=== PATIENT | female | born 1990 | race Caucasian/White ===

== ENCOUNTER 2018-07-26 15:43 | Emergency (ER) | payer OTHER ==
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
[2018-07-26] MEDS ORDERED: Zofran 4 MG/2 ML VIAL ONE (17:09)
[2018-07-26] MEDS ORDERED: Sodium Chloride 0.9% 1000 ML 1,000 ML ONE (17:09)
[2018-07-26] MEDS ORDERED: Hydromorphone 1 mg/ml Ampule ONE ×2 (17:09→19:54)
[2018-07-26 17:14] LABS: BASOPHIL % 0.2 % (0.0-0.4); Basophil (Absolute #) 0.02 (0-0.4); Eosinophil % 0.8 % (0.00-5.0); Eosinophil (Absolute #) 0.08 (0-0.5); Granulocyte Absolute (ANC) 6.92 (1.4-6.9); Granulocytes % 69.9 % (36.0-66.0); Hematocrit 40.5 % (35-47); Hemoglobin 12.7 gm/dl (12.0-16.0); Lymphocyte (Absolute #) 2.39 (1.0-4.6); Lymphocytes % 24.1 % (24.0-44.0); Mean Cell Volume 86.9 fl (78-100); Mean Corpuscular Hemoglobin 27.3 pg (26-32); Mean Corpuscular Hgb Concent. 31.4 g/dl (32-36); Platelet Count 275 K/mm3 (150-450); Red Blood Count 4.66 M/mm3 (4.1-5.4); Red Cell Distribution Width 15.2 % (11.5-14.0); White Blood Count 9.9 K/mm3 (4.0-10.5)
[2018-07-26] MEDS: Sodium Chloride 0.9% 1000 ML 1,000 ML IV STA (17:14)
[2018-07-26] MEDS: Zofran 4 MG/2 ML VIAL IV ONE (17:14)
[2018-07-26] MEDS: Hydromorphone 1 mg/ml Ampule IV ONE ×2 (17:14→19:57)
[2018-07-26 17:32] LABS: ALBUMIN 4.2 g/dL (3.5-5.0); ALKALINE PHOSPHATASE 151 U/L (38-126); ANION GAP 13.8 MEQ/L (5-15); BLOOD UREA NITROGEN 9 mg/dL (7-17); CHLORIDE 103 mmol/L (98-107); Calcium 9.5 mg/dL (8.4-10.2); Carbon Dioxide 29 mmol/L (22-30); Creatinine 1 0.59 mg/dL (0.52-1.04); Glucose 93 mg/dL (74-106); Potassium 4.3 mmol/L (3.5-5.1); SGOT/AST 16 U/L (14-36); SGPT/ALT 24 U/L (0-35); SODIUM 141 mmol/L (137-145); Total Protein 7.8 g/dL (6.3-8.2)
[2018-07-26 20:08] VITALS: BP 130/75; PULSE 95; O2SAT 98
--- NOTE | 2018-07-27 08:38 | XRAY ---
Indication: Pain and edema. Comparison: None 2 views of the left femur demonstrates intact intramedullary neisha with proximal/distal screws fixating a shaft fracture with bone graft in situ. Apposition/alignment appears near-anatomic. Old proximal femur neck fracture with 4 intact orthopedic screws. No other bony, articular, or soft tissue abnormalities. Comment: Comparison studies would be of benefit if available.
--- NOTE | 2018-07-27 08:41 | XRAY ---
Indication: Pain and edema. Comparison: None 2 views of the left lower leg demonstrates intact intramedullary neisha with proximal/distal screws fixating a shaft fracture with bone graft in situ, multiple surgical clips, and soft tissue swelling/edema. Apposition/alignment appears near-anatomic. Adjacent old fibula shaft fracture. No other bony, articular, or soft tissue abnormalities. Comment: Comparison studies would be of benefit if available.
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
== END 2018-07-26 20:40 | disposition short-term general hospital (02) ==
LOC: ED 15:43
DX: I77.1 Stricture of artery (principal); M79.605 Pain in left leg; V89.2XXS Person injured in unspecified motor-vehicle accident, traffic, sequela
CPT/HCPCS: 36000; 36415; 73552; 73590; 80053; 85025; 86140; 93926; 96360; 96374; 96375; 96376; 99285; J1170; J2405

== ENCOUNTER 2019-04-17 23:46 | Observation (INO) | payer OTHER ==
[2019-04-18 00:23] LABS: Appearance CLEAR (CLEAR); Bilirubin NEGATIVE (NEGATIVE); Blood SMALL Ery/ul (0-5); Epithelial Cells RARE /HPF (FEW); Glucose NEGATIVE (NEGATIVE); Ketones NEGATIVE (NEGATIVE); Leukocyte Esterase NEGATIVE (NEGATIVE); Nitrite NEGATIVE (NEGATIVE); Protein,Urine Dip NEGATIVE (Negative); RBC 0-2 /HPF (0-2); Specific Gravity 1.008 (1.005-1.025); Urobilinogen NEGATIVE mg/dL (0-1)
[2019-04-18 00:35] LABS: Amphetamine,Urine NEGATIVE (NEGATIVE); Barbiturate,Urine NEGATIVE (NEGATIVE); Benzodiazepine,Urine NEGATIVE (NEGATIVE); Cocaine,Urine NEGATIVE (NEGATIVE); Methadone,Urine NEGATIVE (NEGATIVE); Opiate,Urine NEGATIVE (NEGATIVE); PCP,Urine NEGATIVE (NEGATIVE); THC,Urine NEGATIVE (NEGATIVE)
[2019-04-18 01:35] VITALS: BP 127/65; PULSE 78
== END 2019-04-18 01:10 | disposition home or self-care (01) ==
LOC: UNDOADMOB 23:46 → OB 23:46 → UNDODISOB 04-18 01:10
PROVIDERS: ADMIT Family Medicine; ATTEND Family Medicine
DX: Z34.03 Encounter for supervision of normal first pregnancy, third trimester (principal)
CPT/HCPCS: 80307; 81001; G0378

== ENCOUNTER 2019-05-17 23:10 | Inpatient (IN) | payer OTHER ==
[2019-05-17] MEDS ORDERED: BRETHINE 1 MG/ML SQ PRN (23:42)
[2019-05-17] MEDS ORDERED: XYLOCAINE 1% HCL 20 ML MDV IJ PRN (23:45)
[2019-05-17] MEDS ORDERED: PITOCIN 30 UNITS/ LR 500 ML 500 ML IV SCH (23:45)
[2019-05-17] MEDS ORDERED: Zofran 4 MG/2 ML VIAL IV PRN (23:45)
[2019-05-17] MEDS ORDERED: TYLENOL EXTRA STRENGTH 500 MG PO PRN (23:45)
[2019-05-18 00:15] LABS: Amphetamine,Urine NEGATIVE (NEGATIVE); Barbiturate,Urine NEGATIVE (NEGATIVE); Benzodiazepine,Urine NEGATIVE (NEGATIVE); Cocaine,Urine NEGATIVE (NEGATIVE); Methadone,Urine NEGATIVE (NEGATIVE); Opiate,Urine NEGATIVE (NEGATIVE); PCP,Urine NEGATIVE (NEGATIVE); THC,Urine NEGATIVE (NEGATIVE)
[2019-05-18 00:22] LABS: Absolute Neutrophil Ct (ANC) 6.36 (1.4-6.9); BASOPHIL % 0.2 % (0.0-0.4); Basophil (Absolute #) 0.02 (0-0.4); Eosinophil % 1.2 % (0.00-5.0); Eosinophil (Absolute #) 0.11 (0-0.5); Hematocrit 35.9 % (35-47); Hemoglobin 12.2 gm/dl (12.0-16.0); Lymphocyte (Absolute #) 2.18 (1.0-4.6); Lymphocytes % 23.9 % (24.0-44.0); Monocyte (Absolute #) 0.46 (0.0-1.3); Neutrophil % 69.7 % (36.0-66.0); Platelet Count 231 K/mm3 (150-450); Red Blood Count 3.99 M/mm3 (4.1-5.4); Red Cell Distribution Width 12.6 % (11.5-14.0); White Blood Count 9.1 K/mm3 (4.0-10.5)
[2019-05-18 00:37] LABS: Mean Corpuscular Hemoglobin 30.5 pg (26-32)
[2019-05-18] MEDS ORDERED: Cervidil 10 MG VAG SCH (01:00)
[2019-05-18] MEDS ORDERED: PITOCIN 30 UNITS/ LR 500 ML 500 ML IV SCH (08:00)
[2019-05-18] MEDS: Lactated Ringers 1,000 ML IV SCH ×2 (13:49→20:41)
[2019-05-18] MEDS ORDERED: Nubain 10 MG/ML IV ONE ×2 (17:48→21:18)
[2019-05-18] MEDS ORDERED: Lactated Ringers 1,000 ML IV ONE (23:16)
[2019-05-18] MEDS ORDERED: Ephedrine Sulfate 50 MG/ML IV PRN (23:16)
[2019-05-18] MEDS ORDERED: XYLOCAINE 2%/Epi 1:200000 20ML VIAL MPF ONE (23:20)
[2019-05-18] MEDS: OB EPIDURAL NAROPIN/SUFENTANIL IN NACL EPIDURAL PRN (23:28)
[2019-05-19] MEDS: Lactated Ringers 1,000 ML IV SCH ×2 (02:59→09:46)
[2019-05-19] MEDS: OB EPIDURAL NAROPIN/SUFENTANIL IN NACL EPIDURAL PRN (08:41)
[2019-05-19 14:32] LABS: VBG BASE EXCESS -5.4 (-2.0-2.0); VBG HEMOGLOBIN 15.9; VBG O2 SATURATION 44.7 (95-100); VBG POTASSIUM 4.9 (3.5-5.1); VBG pH 7.23 (7.32-7.42)
[2019-05-19] MEDS ORDERED: NORCO 5/325 MG PO PRN (16:09)
[2019-05-19] MEDS ORDERED: MOTRIN 400 MG PO PRN (16:09)
[2019-05-19] MEDS ORDERED: LANSINOH 40 GM TOP PRN (16:09)
[2019-05-19] MEDS ORDERED: Dermoplast Spray TP PRN (16:09)
[2019-05-19] MEDS ORDERED: TUCKS TP PRN (16:09)
[2019-05-19] MEDS: CLINDAMYCIN-D5W 600 MG/50 ML*** 600 MG/50 ML BAG IV SCH ×2 (16:20→23:33)
[2019-05-19] MEDS: PITOCIN 30 UNITS/ LR 500 ML 500 ML IV SCH (17:46)
[2019-05-19 20:28] LABS: ABO TYPING O; Antibody Screen NEGATIVE (NEGATIVE); RH TYPING POSITIVE
[2019-05-19] MEDS: Colace 100 MG PO SCH (22:27)
[2019-05-20 05:47] LABS: Hematocrit 25.3 % (35-47); Hemoglobin 8.2 gm/dl (12.0-16.0); Mean Cell Volume 92.3 fl (78-100); Mean Corpuscular Hemoglobin 29.9 pg (26-32); Mean Corpuscular Hgb Concent. 32.4 g/dl (32-36); Mean Platelet Volume 10.1 fl (6-9.5); Platelet Count 196 K/mm3 (150-450); Red Blood Count 2.74 M/mm3 (4.1-5.4); Red Cell Distribution Width 12.6 % (11.5-14.0); White Blood Count 16.7 K/mm3 (4.0-10.5)
[2019-05-20 06:30] LABS: Lymphocytes 8 % (24-44); Monocyte 2 % (0.0-12.0); Neutrophils 90 % (36.0-66.0); Platelet Estimate NORMAL (NORMAL); Total Cells Counted 100
[2019-05-20] MEDS: CLINDAMYCIN-D5W 600 MG/50 ML*** 600 MG/50 ML BAG IV SCH ×2 (06:30→11:13)
[2019-05-20] MEDS: Colace 100 MG PO SCH ×2 (10:03→20:30)
[2019-05-20] MEDS: FERREX 150 PO SCH (10:03)
--- NOTE | 2019-05-20 10:37 | PCM.NOTE ---
Date and Time: 05/20/19 1033 Subjective Assessment: PPD 1 PT RESTING IN BED AND DOING WELL. VSS ABD; SOFT UTERUS; FIRM LOCHIA; MILD HGB; 8.2 TODAY A/P SP WITH MANUAL REMOVAL OF PLACENTA, ANEMIA WILL DISCONTINUE CLINDAMYCIN TODAY WILL START FESO4 325 TID TODAY REPEAT CBC TOMORROW AM ANTICIPATE DISCHARGE HOME TOMORROW OBJECTIVE DATA Vital Signs: Vital Signs - 24 hr Temp Pulse Resp BP BP Pulse Ox 05/20/19 10:00 98.3 F 90 18 132/63 05/20/19 09:57 98.3 F 90 18 132/63 05/19/19 20:00 98.2 F 105 H 18 136/76 97 05/19/19 17:30 81 20 135/75 05/19/19 16:30 87 20 106/72 05/19/19 15:30 86 20 142/67 05/19/19 15:15 86 20 135/76 05/19/19 15:00 93 H 20 155/67 05/19/19 14:15 20 05/19/19 14:00 80 20 05/19/19 13:45 20 05/19/19 13:30 20 05/19/19 13:15 64 20 130/79 05/19/19 13:00 20 05/19/19 12:45 88 20 141/92 05/19/19 12:30 78 20 134/83 05/19/19 12:15 75 20 130/67 05/19/19 12:00 77 20 131/59 05/19/19 11:45 68 20 108/80 05/19/19 11:30 73 20 108/55 05/19/19 11:15 73 20 100/58 05/19/19 11:00 57 L 20 78/45 05/19/19 10:45 61 20 106/57 Pain Assessment - Last Documented Pain Intensity [Lower Medial] 7 Pain Intensity 4 Pain Scale Used FLACC Intake and Output: Intake & Output 05/17/19 05/18/19 05/19/19 05/20/19 11:59 11:59 11:59 11:59 Intake Total 100 4689 1200 Output Total 375 600 Balance 100 4314 600 Weight 82 kg Lab Results: Lab Results-Last 24 Hours 05/19/19 05/19/19 05/20/19 Range/Units 14:31 19:40 05:43 WBC 16.7 H (4.0-10.5) K/mm3 RBC 2.74 L (4.1-5.4) M/mm3 Hgb 8.2 L (12.0-16.0) gm/dl Hct 25.3 L (35-47) % MCV 92.3 (78-100) fl MCH 29.9 (26-32) pg MCHC 32.4 (32-36) g/dl RDW 12.6 (11.5-14.0) % Plt Count 196 (150-450) K/mm3 MPV 10.1 H (6-9.5) fl Segmented Neutrophils 90 H (36.0-66.0) % Lymphocytes (Manual) 8 L (24-44) % Monocytes (Manual) 2 (0.0-12.0) % Platelet Estimate NORMAL (NORMAL) RBC Morphology NORMAL pO2/FiO2 Ratio 21.0 % VBG pH 7.23 L* (7.32-7.42) VBG pCO2 at Pat Temp 55 (42-55) mm/Hg VBG pO2 at Pat Temp 20 L (25-40) mm/Hg VBG HCO3 23.0 (22-28) meq/L VBG O2 Sat (Chitra) 44.7 L (95-100) VBG Base Excess -5.4 L (-2.0-2.0) VBG Hemoglobin 15.9 VBG Carboxyhemoglobin 2.0 (0.0-6.9) % T HGB POC Potassium 4.9 (3.5-5.1) ABO Group O Rh Factor POSITIVE Antibody Screen NEGATIVE (NEGATIVE)
[2019-05-20] MEDS: PITOCIN 30 UNITS/ LR 500 ML 500 ML IV SCH (10:53)
[2019-05-20] MEDS: Lactated Ringers 1,000 ML IV SCH ×2 (10:53→16:22)
[2019-05-20] MEDS: FEOSOL 325 MG PO SCH ×3 (11:13→20:30)
[2019-05-21 06:16] LABS: Hematocrit 21.5 % (35-47); Mean Cell Volume 93.5 fl (78-100); Mean Corpuscular Hemoglobin 30.4 pg (26-32); Mean Corpuscular Hgb Concent. 32.6 g/dl (32-36); Mean Platelet Volume 10.4 fl (6-9.5); Platelet Count 190 K/mm3 (150-450); Red Cell Distribution Width 12.7 % (11.5-14.0); White Blood Count 11.4 K/mm3 (4.0-10.5)
[2019-05-21] MEDS: Lactated Ringers 1,000 ML IV SCH (07:57)
[2019-05-21] MEDS: FERREX 150 PO SCH (10:26)
[2019-05-21] MEDS: Colace 100 MG PO SCH (10:28)
[2019-05-21] MEDS: FEOSOL 325 MG PO SCH ×2 (10:28→14:55)
[2019-05-21 11:19] LABS: Hematocrit 24.1 % (35-47); Hemoglobin 7.7 gm/dl (12.0-16.0)
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
[2019-05-21] MEDS: PITOCIN 30 UNITS/ LR 500 ML 500 ML IV SCH (12:43)
[2019-05-21 14:40] VITALS: BP 116/63; PULSE 82; O2SAT 97
[2019-05-21 15:06] LABS: CHLAMYDIA URINE NEGATIVE (NEGATIVE); GC URINE NEGATIVE (NEGATIVE)
== END 2019-05-21 16:20 | disposition home or self-care (01) | DRG 807 ==
LOC: OB 23:10 → OBSVTOIN 23:11 → INTOOBSV 23:11 → OB 23:11 → OBSVTOIN 05-18 23:10
PROVIDERS: ADMIT Family Medicine; ATTEND Family Medicine
PROC: 10E0XZZ Delivery of Products of Conception, External Approach (ICD-10-PCS; principal; 2019-05-19)
DX: O71.4 Obstetric high vaginal laceration alone (principal); Z37.0 Single live birth; Z3A.39 39 weeks gestation of pregnancy; D64.9 Anemia, unspecified
CPT/HCPCS: 36415; 80307; 82805; 85014; 85018; 85025; 85027; 86850; 86900; 86901; 87086; 87340; 87491; 87591; 94799; G0378; J2300; J2590; J2795; L0625; A9270-GY

== ENCOUNTER 2019-07-11 05:48 | Day surgery (SDC) | payer OTHER ==
[2019-07-11] MEDS ORDERED: TRANEXAMIC ACID 1000 MG/10 ML IV ONE (05:49)
[2019-07-11 06:25] VITALS: O2SAT 99
[2019-07-11] MEDS ORDERED: Lactated Ringers 1,000 ML IV SCH (06:30)
[2019-07-11] MEDS ORDERED: DIPRIVAN 200 MG/20 ML IV ONE (07:58)
[2019-07-11] MEDS ORDERED: SUBLIMAZE 100 MCG/2 ML ONE (07:58)
[2019-07-11] MEDS ORDERED: Zofran 4 MG/2 ML VIAL ONE (08:34)
[2019-07-11] MEDS ORDERED: TORAdol 30 mg Injection ONE (08:34)
[2019-07-11] MEDS ORDERED: Decadron 4 MG INJ ONE (08:34)
[2019-07-11] MEDS ORDERED: Sodium Chloride 0.9% 250 ML 250 ML IV ONE (08:36)
[2019-07-11 09:45] VITALS: BP 145/84; PULSE 79
--- NOTE | 2019-07-12 07:52 | OP ---
SURGERY DATE/TIME: 07/11/201924 PREOPERATIVE DIAGNOSES: 1) Retained products of conception. 2) Retained placental tissue. 3) bleeding. POSTOPERATIVE DIAGNOSES: 1) Retained products of conception. 2) Retained placental tissue. 3) bleeding. PROCEDURE: D&C with suction. SURGEON: Holger Dutta D.O. SEROLOGIST: Ancelmo Lockett surgical dressing maker. ANESTHESIA: General. ESTIMATED BLOOD LOSS: Minimal. COMPLICATIONS: None. INDICATIONS: The risks, benefits, indications and alternatives of the procedure were reviewed with the patient prior to procedure. The patient understood the risk of infection, bleeding, bowel injury, bladder injury, ureteral injury, uterine perforation associated with the surgery however desires to have this procedure as a possible means to alleviate her current medical condition. DESCRIPTION OF PROCEDURE AND FINDINGS: At this time the patient is taken to the operating room, given general sedation, placed in the dorsal lithotomy position. Prepped and draped in the usual sterile fashion. A weighted speculum is then placed in the patient's vagina and the anterior lip of the cervix is grasped with a single tooth tenaculum. Endocervical dilators were advanced through the endocervical canal as a means to dilate the cervix and the uterus was sounded to approximately 11 cm. From this point a #8 curved suction evacuator was then placed into the fundus of the uterus. The machine was turned on and retrieval of a significant amount of placental tissue was removed including three large approximately 3 x 2 cm pieces of placental tissue. After removal of the placental tissue the evacurette was then removed from the patient's uterine cavity and the curette was subsequently placed into the fundus of the uterus where curettage was performed in all quadrants of the uterus retrieving the remaining amount of placental endometrial tissue. Again, there was a significant amount of placental tissue that remained. However at this point after complete curettage the patient's uterine cavity appeared to be within normal limits with no gross abnormalities while curetting. From this point all instruments were then removed from the patient's vaginal region. The patient was then taken out of the dorsal lithotomy position, was taken out of anesthesia and was then taken to the recovery room in stable condition. All instruments and laps were accounted for x2.
== END 2019-07-11 09:55 | disposition home or self-care (01) ==
LOC: SDC 05:48
PROVIDERS: ATTEND Obstetrics & Gynecology
DX: O72.2 Delayed and secondary postpartum hemorrhage (principal)
CPT/HCPCS: 88305; 88307; J1100; J1885; J2405; J2704; J3010

== ENCOUNTER 2020-10-14 12:41 | Observation (INO) | payer OTHER ==
[2020-10-14 13:14] VITALS: BP 124/74; PULSE 76
== END 2020-10-14 13:30 | disposition home or self-care (01) ==
LOC: OB 12:41
PROVIDERS: ADMIT Family Medicine; ATTEND Family Medicine
DX: Z34.83 Encounter for supervision of other normal pregnancy, third trimester (principal); Z3A.33 33 weeks gestation of pregnancy
CPT/HCPCS: 59025; G0378

== ENCOUNTER 2020-10-27 17:28 | Observation (INO) | payer OTHER ==
[2020-10-27 18:17] LABS: Amphetamine,Urine NEGATIVE (NEGATIVE); Barbiturate,Urine NEGATIVE (NEGATIVE); Benzodiazepine,Urine NEGATIVE (NEGATIVE); Cocaine,Urine NEGATIVE (NEGATIVE); Methadone,Urine NEGATIVE (NEGATIVE); Opiate,Urine NEGATIVE (NEGATIVE); PCP,Urine NEGATIVE (NEGATIVE); THC,Urine NEGATIVE (NEGATIVE)
[2020-10-27 19:00] LABS: Appearance CLOUDY (CLEAR); Bacteria MODERATE /HPF (NEGATIVE); Bilirubin NEGATIVE (NEGATIVE); Blood NEGATIVE Ery/ul (0-5); Calcium Oxalate Crystals 26-50 /HPF (NEGATIVE); Epithelial Cells RARE /HPF (FEW); Glucose NEGATIVE (NEGATIVE); Ketones NEGATIVE (NEGATIVE); Leukocyte Esterase MODERATE (NEGATIVE); Mucus SLIGHT /HPF (NEGATIVE); Nitrite POSITIVE (NEGATIVE); Protein,Urine Dip 30 (Negative); Specific Gravity 1.025 (1.005-1.025); Urobilinogen 2 mg/dL (0-1); WBC >100 /HPF (0-5)
[2020-10-27] MEDS ORDERED: XYLOCAINE 1% HCL 20 ML MDV SUBDERMAL ONE (19:30)
[2020-10-27] MEDS ORDERED: Rocephin 1000 MG INJ IM ONE (19:30)
[2020-10-27] MEDS ORDERED: Rocephin 1000 MG INJ ONE (20:05)
[2020-10-27 21:33] VITALS: O2SAT 100
[2020-10-27 22:22] VITALS: BP 122/90; PULSE 71
== END 2020-10-27 22:00 | disposition home or self-care (01) ==
LOC: OB 17:28
PROVIDERS: ADMIT Family Medicine; ATTEND Family Medicine
DX: Z34.83 Encounter for supervision of other normal pregnancy, third trimester (principal); Z3A.34 34 weeks gestation of pregnancy
CPT/HCPCS: 80307; 81001; 84112; 87086; 96372; G0378; 87077; 87186; J0696

== ENCOUNTER 2020-11-28 17:52 | Inpatient (IN) | payer OTHER ==
[2020-11-28] MEDS ORDERED: Zofran 4 MG/2 ML VIAL IV PRN (18:04)
[2020-11-28] MEDS ORDERED: XYLOCAINE 1% HCL 20 ML MDV IJ PRN (18:04)
[2020-11-28 18:48] LABS: Absolute Neutrophil Ct (ANC) 7.96 (1.4-6.9); BASOPHIL % 0.1 % (0.0-0.4); Basophil (Absolute #) 0.01 (0-0.4); Eosinophil % 0.7 % (0.00-5.0); Eosinophil (Absolute #) 0.08 (0-0.5); Hematocrit 37.3 % (35-47); Hemoglobin 12.3 gm/dl (12.0-16.0); Lymphocyte (Absolute #) 2.23 (1.0-4.6); Lymphocytes % 20.6 % (24.0-44.0); Mean Corpuscular Hemoglobin 30.7 pg (26-32); Mean Platelet Volume 9.7 fl (7.5-11.0); Monocyte (Absolute #) 0.56 (0.0-1.3); Monocytes % 5.2 % (0.0-12.0); Neutrophil % 73.4 % (36.0-66.0); Platelet Count 263 K/mm3 (150-450); Red Blood Count 4.01 M/mm3 (4.1-5.4); Red Cell Distribution Width 13.5 % (11.5-14.0); White Blood Count 10.8 K/mm3 (4.0-10.5)
[2020-11-28 18:53] LABS: Appearance SLIGHTLY CLOUDY (CLEAR); Bacteria RARE /HPF (NEGATIVE); Bilirubin NEGATIVE (NEGATIVE); Blood MODERATE Ery/ul (0-5); Epithelial Cells RARE /HPF (FEW); Glucose NEGATIVE (NEGATIVE); Hyaline Casts 0-2 /LPF (0-2); Ketones NEGATIVE (NEGATIVE); Leukocyte Esterase NEGATIVE (NEGATIVE); Mucus SLIGHT /HPF (NEGATIVE); Nitrite NEGATIVE (NEGATIVE); Protein,Urine Dip 30 (Negative); Specific Gravity 1.025 (1.005-1.025); Urobilinogen 2 mg/dL (0-1)
[2020-11-28 19:06] LABS: Amphetamine,Urine NEGATIVE (NEGATIVE); Barbiturate,Urine NEGATIVE (NEGATIVE); Benzodiazepine,Urine NEGATIVE (NEGATIVE); Cocaine,Urine NEGATIVE (NEGATIVE); Methadone,Urine NEGATIVE (NEGATIVE); Opiate,Urine NEGATIVE (NEGATIVE); PCP,Urine NEGATIVE (NEGATIVE); THC,Urine NEGATIVE (NEGATIVE)
[2020-11-28] MEDS ORDERED: BRETHINE 1 MG/ML SQ PRN (19:32)
[2020-11-28] MEDS ORDERED: ROCEPHIN 1 Gm-D5w 50 ml Bag** 1 G/50 ML IVPB IV ONE (20:12)
[2020-11-28] MEDS: Lactated Ringers 1,000 ML IV ONE (20:13)
[2020-11-28] MEDS ORDERED: Cervidil 10 MG VAG SCH (22:00)
[2020-11-29] MEDS ORDERED: OB EPIDURAL NAROPIN/SUFENTANIL IN NACL EPIDURAL PRN (07:12)
[2020-11-29] MEDS ORDERED: Dermoplast Spray TP PRN (07:48)
[2020-11-29] MEDS ORDERED: PITOCIN 30 UNITS/ LR 500 ML 30 UNITS/500 ML IV.SOLN. IV SCH (08:00)
[2020-11-29] MEDS: PITOCIN 30 UNITS/ LR 500 ML 30 UNITS/500 ML IV.SOLN. IV SCH ×2 (10:53→22:37)
[2020-11-29] MEDS: Lactated Ringers 1,000 ML IV SCH ×3 (10:59→22:37)
[2020-11-29] MEDS: Lactated Ringers 1,000 ML IV ONE (14:40)
[2020-11-29] MEDS ORDERED: ROCEPHIN 1 Gm-D5w 50 ml Bag** 1 G/50 ML IVPB IV ONE (20:30)
[2020-11-30] MEDS: MOTRIN 400 MG PO PRN ×4 (01:42→22:33)
[2020-11-30] MEDS: TUCKS TP PRN ×2 (01:44→20:08)
[2020-11-30 06:53] LABS: Absolute Neutrophil Ct (ANC) 7.46 (1.4-6.9); BASOPHIL % 0.2 % (0.0-0.4); Basophil (Absolute #) 0.02 (0-0.4); Eosinophil % 1.1 % (0.00-5.0); Eosinophil (Absolute #) 0.12 (0-0.5); Hematocrit 34.9 % (35-47); Hemoglobin 11.1 gm/dl (12.0-16.0); Lymphocyte (Absolute #) 2.54 (1.0-4.6); Lymphocytes % 23.6 % (24.0-44.0); Mean Cell Volume 94.8 fl (78-100); Mean Corpuscular Hemoglobin 30.2 pg (26-32); Mean Corpuscular Hgb Concent. 31.8 g/dl (32-36); Mean Platelet Volume 9.7 fl (7.5-11.0); Monocytes % 5.6 % (0.0-12.0); Neutrophil % 69.5 % (36.0-66.0); Platelet Count 219 K/mm3 (150-450); Red Blood Count 3.68 M/mm3 (4.1-5.4); Red Cell Distribution Width 13.5 % (11.5-14.0); White Blood Count 10.7 K/mm3 (4.0-10.5)
[2020-11-30] MEDS: Colace 100 MG PO SCH ×2 (10:16→22:33)
[2020-11-30] MEDS: FERREX 150 PO SCH (10:16)
--- NOTE | 2020-11-30 10:27 | PCM.NOTE ---
Date and Time: 11/30/20 1025 Subjective Assessment: mild lochia, pain well controlled, tolerating po intake Objective Exam General Appearance: no apparent distress, alert Respiratory Exam: normal breath sounds, lungs clear, No respiratory distress Cardiovascular Exam: regular rate/rhythm, normal heart sounds Gastrointestinal/Abdomen Exam: soft, No tenderness, No mass Extremity Exam: normal inspection, normal range of motion OBJECTIVE DATA Vital Signs: Vital Signs - 24 hr Temp Pulse Resp BP BP Pulse Ox 11/30/20 08:00 98.5 F 67 18 119/63 98 11/30/20 04:00 97.7 F 69 20 140/66 97 11/30/20 00:00 98.0 F 61 20 160/54 97 11/29/20 22:00 97.8 F 64 20 108/75 97 11/29/20 21:30 98.0 F 75 20 115/73 97 11/29/20 21:00 97.9 F 61 20 104/54 97 11/29/20 20:45 97.9 F 68 18 134/63 97 11/29/20 20:30 98.9 F 58 L 20 109/56 98 11/29/20 20:15 98.6 F 75 20 129/66 98 11/29/20 20:00 98.7 F 65 20 103/54 98 11/29/20 19:15 75 20 108/58 11/29/20 19:00 71 20 118/71 11/29/20 18:30 63 18 137/60 11/29/20 18:15 63 18 129/60 11/29/20 18:00 64 18 134/61 11/29/20 17:45 75 18 113/58 11/29/20 17:30 61 18 108/44 11/29/20 17:15 72 18 99/56 11/29/20 17:00 63 18 102/55 102/55 11/29/20 16:45 63 18 101/57 11/29/20 16:30 71 18 87/39 96 11/29/20 16:15 77 18 118/53 98 11/29/20 16:00 74 18 122/61 98 11/29/20 15:45 68 20 122/61 98 11/29/20 15:30 67 20 135/67 98 11/29/20 15:15 61 20 117/56 11/29/20 15:00 97.4 F 63 20 110/57 11/29/20 14:45 20 11/29/20 14:30 65 20 117/68 11/29/20 14:15 65 20 110/55 11/29/20 14:00 65 20 110/60 11/29/20 13:45 64 20 104/56 11/29/20 13:30 63 20 114/62 11/29/20 13:15 64 20 113/70 11/29/20 13:00 71 20 114/67 114/67 11/29/20 12:45 71 18 104/60 11/29/20 12:30 67 18 104/57 11/29/20 12:15 73 20 141/70 11/29/20 11:57 63 20 99/57 11/29/20 11:45 64 20 109/59 11/29/20 11:30 64 20 108/54 11/29/20 11:15 62 20 115/59 11/29/20 11:00 20 Pain Assessment - Last Documented Pain Intensity [Anterior 0 Medial] Pain Intensity 0 Pain Scale Used 0-10 Pain Scale Intake and Output: Intake & Output 11/27/20 11/28/20 11/29/20 11/30/20 11:59 11:59 11:59 11:59 Intake Total 2425 Output Total 400 Balance 2024 Weight 99.79 kg Lab Results: Lab Results-Last 24 Hours 11/28/20 11/30/20 Range/Units 18:35 06:00 WBC 10.7 H (4.0-10.5) K/mm3 RBC 3.68 L (4.1-5.4) M/mm3 Hgb 11.1 L (12.0-16.0) gm/dl Hct 34.9 L (35-47) % MCV 94.8 (78-100) fl MCH 30.2 (26-32) pg MCHC 31.8 L (32-36) g/dl RDW 13.5 (11.5-14.0) % Plt Count 219 (150-450) K/mm3 MPV 9.7 (7.5-11.0) fl Gran % 69.5 H (36.0-66.0) % Eos # (Auto) 0.12 (0-0.5) Absolute Lymphs (auto) 2.54 (1.0-4.6) Absolute Monos (auto) 0.60 (0.0-1.3) Lymphocytes % 23.6 L (24.0-44.0) % Monocytes % 5.6 (0.0-12.0) % Eosinophils % 1.1 (0.00-5.0) % Basophils % 0.2 (0.0-0.4) % Absolute Granulocytes 7.46 H (1.4-6.9) Basophils # 0.02 (0-0.4) Hep Bs Antigen Negative (Negative) Assessment/Plan (1) Vaginal delivery Current Visit: No Status: Acute Assessment & Plan: routine post- care Code(s): O80 - ENCOUNTER FOR FULL-TERM UNCOMPLICATED DELIVERY
[2020-11-30] MEDS: TYLENOL EXTRA STRENGTH 500 MG PO PRN ×2 (14:24→20:07)
[2020-12-01] MEDS: TYLENOL EXTRA STRENGTH 500 MG PO PRN ×2 (01:32→08:22)
[2020-12-01] MEDS: MOTRIN 400 MG PO PRN ×2 (06:01→11:54)
--- NOTE | 2020-12-01 08:04 | PCM.DS ---
Discharge Summary Date of Admission: 11/29/20 18:16 Admitting Physician: SAVTIA ROBERT Primary Care Provider: SAVITA ROBERT Allergies Allergies No Known Drug Allergies Allergy (Verified 11/28/20 20:36) Hospital Summary - Hospital Course Hospital Course: patient had uncomplicated vaginal delivery by Dr Robert, her pain is well controlled with tylenol and she is ambulatory, tolerating po with mild lochia. - Vitals & Intake/Output Vital Signs: Vital Signs Temperature 97.5 F 12/01/20 02:00 Pulse Rate 62 12/01/20 02:00 Respiratory Rate 20 12/01/20 02:00 Blood Pressure 122/64 12/01/20 02:00 O2 Sat by Pulse Oximetry 98 12/01/20 02:00 Intake & Output: Intake & Output 11/28/20 11/29/20 11/30/20 12/01/20 11:59 11:59 11:59 11:59 Intake Total 2425 2250 Output Total 400 Balance 2024 225 Weight 99.79 kg - Lab Result Diagrams: 11/30/20 06:00 Lab Results-Last 24 Hrs: Lab Results-Last 24 Hours 11/28/20 Range/Units 18:35 Hep Bs Antigen Negative (Negative) Micro Results-Entire Visit: Microbiology 11/28/20 18:35 Urine Culture - Final Clean Catch Midstream NO GROWTH Discharge Exam General Appearance: no apparent distress, alert Respiratory Exam: normal breath sounds, lungs clear, No respiratory distress Cardiovascular Exam: regular rate/rhythm, normal heart sounds Gastrointestinal/Abdomen Exam: soft, No tenderness, No mass Skin Exam: normal color, warm, dry Final Diagnosis/Problem List - Final Discharge Diagnosis/Problem (1) Vaginal delivery Current Visit: No Status: Acute Code(s): O80 - ENCOUNTER FOR FULL-TERM UNCOMPLICATED DELIVERY - Discharge Disposition: Home, Self-Care Condition: Stable Prescriptions: Continue Vit#96/Ferrous Fum/FA [ Tablet] 1 tab PO DAILY Sertraline HCl 100 mg PO DAILY Discontinued Ferrous Sulfate 325 mg [Feosol 325 mg] 325 mg PO DAILY Follow up with: SAVITA ROBERT [Primary Care Provider] -
[2020-12-01] MEDS: Colace 100 MG PO SCH (08:22)
[2020-12-01] MEDS: FERREX 150 PO SCH (08:22)
[2020-12-01 10:51] VITALS: O2SAT 99
[2020-12-01 14:43] VITALS: BP 128/60; PULSE 77
== END 2020-12-01 12:15 | disposition home or self-care (01) | DRG 807 ==
LOC: OB 17:52 → OBSVTOIN 11-29 18:16
PROVIDERS: ADMIT Family Medicine; ATTEND Family Medicine
PROC: 10E0XZZ Delivery of Products of Conception, External Approach (ICD-10-PCS; principal; 2020-11-29)
DX: O66.0 Obstructed labor due to shoulder dystocia (principal); Z37.0 Single live birth; Z3A.39 39 weeks gestation of pregnancy
CPT/HCPCS: 36415; 80307; 81001; 85025; 87086; 87340; G0378; J0696; J2590; J2795; A9270-GY

== ENCOUNTER 2021-02-20 07:30 | Day surgery (SDC) | payer OTHER ==
--- NOTE | 2021-02-14 14:25 | HP ---
DATE OF SURGERY: 02/20/2021 HISTORY OF PRESENT ILLNESS: The patient is a 30 year-old female who presents with desire for tubal ligation. The patient had two pregnancies and two children. The last delivered 11/29/2020. The patient states that she has a lot of urinary tract infections. Denies urinary incontinence. The patient verbalizes consent for desired sterility and would like to proceed with the procedure. PAST MEDICAL HISTORY: Depression. ALLERGIES: NKDA. MEDICATIONS: Zoloft, vitamin. FAMILY HISTORY: Diabetes. SOCIAL HISTORY: None. REVIEW OF SYSTEMS: CONSTITUTIONAL: Denies fever or chills. CHEST: Denies shortness of breath. CVS: Denies chest pain. ABDOMEN: Denies abdominal pain. INTEGUMENTARY: Negative. PHYSICAL EXAMINATION: GENERAL: No acute distress. CHEST: Nonlabored. No shortness of breath. CVS: Regular rate and rhythm. ABDOMEN: Soft. EXTREMITIES: No edema. NEUROLOGIC: Alert. PSYCHIATRIC: Appropriate. IMPRESSION: Desired sterility. PLAN: Laparoscopic tubal ligation with Dr. Jones Pablo. As dictated by Greer Genao NP.
[~2021-02-20 07:30] MED LIST: Lactated Ringers 1,000 ML IV SCH; Sensorcaine 0.25% 10 ML ONE
[2021-02-20] MEDS ORDERED: MEFOXIN 2 GM PREMIX** 2 GM/50 ML ML IV SCH (08:00)
[2021-02-20] MEDS ORDERED: Lactated Ringers 1,000 ML IV ONE (08:06)
[2021-02-20] MEDS ORDERED: MEFOXIN 2 GM PREMIX** 2 GM/50 ML ML IV ONE (08:08)
[2021-02-20] MEDS ORDERED: Xylocaine-Mpf 2% 5 Ml Vial ONE (09:15)
[2021-02-20] MEDS ORDERED: Decadron 4 MG INJ ONE (09:15)
[2021-02-20] MEDS ORDERED: SUBLIMAZE 100 MCG/2 ML ONE ×3 (09:15→10:30)
[2021-02-20] MEDS ORDERED: Zofran 4 MG/2 ML VIAL ONE (09:15)
[2021-02-20] MEDS ORDERED: TORAdol 30 mg Injection ONE (09:15)
[2021-02-20] MEDS ORDERED: Zemuron 100 MG/10 ML ONE (09:15)
[2021-02-20] MEDS ORDERED: DIPRIVAN 200 MG/20 ML IV ONE (09:15)
[2021-02-20] MEDS ORDERED: BRIDION 200MG/2ML IV ONE (09:15)
[2021-02-20 11:06] VITALS: PULSE 74; O2SAT 98
[2021-02-20 11:18] VITALS: BP 118/72
--- NOTE | 2021-02-20 14:05 | OP ---
SURGERY DATE/TIME: 02/20/2021 0924 PREOPERATIVE DIAGNOSIS: Undesired fertility, multiparity. POSTOPERATIVE DIAGNOSIS: Undesired fertility, multiparity. PROCEDURE: Bilateral tubal ligation. SURGEON: Jones Pablo M.D. ANESTHESIA: General. COMPLICATIONS: None. CONDITION: Stable. INDICATION: The patient is desiring to have sterility. She has two children, two girls both healthy. The youngest is two months old. It was reconfirmed immediately prior to going back to the surgical suite. She desired to have infertility. DESCRIPTION OF PROCEDURE: General anesthetic. Routine prep and drape. Veress needle inserted. Opening pressure of 1, insufflating pressure 14. A second 5 port right lateral lower quadrant. Under direct visualization the uterus was two months . Both tubes were normal. Her left salpinx proximal middle third a 2 cm section was transmurally cauterized. It was inspected and looked excellent. Going to the right side similarly a 2 cm section was transmurrally fulgurated completely. It looked excellent. At this time the uterus was held up in the center. The round ligaments were seen on both the left and right. The coagulated areas on the left and then the meso-ovarian pedicle posteriorly on both the left and right. There had been a small amount of blood on entry which was probably retrograde menses or a left follicular cyst this was suctioned. CO2 exsufflated. Port sites were closed. The skin was closed with 4-0 Vicryl and Steri-Strips. Patient tolerated the procedure satisfactorily.
[2021-02-20 19:23] LABS: Appearance SLIGHTLY CLOUDY (CLEAR); Bilirubin NEGATIVE (NEGATIVE); Blood MODERATE Ery/ul (0-5); Epithelial Cells RARE /HPF (FEW); Glucose NEGATIVE (NEGATIVE); Ketones NEGATIVE (NEGATIVE); Leukocyte Esterase NEGATIVE (NEGATIVE); Mucus SLIGHT /HPF (NEGATIVE); Nitrite NEGATIVE (NEGATIVE); Protein,Urine Dip 30 (Negative); Specific Gravity 1.023 (1.005-1.025); Urobilinogen 2 mg/dL (0-1)
[2021-02-20 19:24] LABS: RBC >101 /HPF (0-2)
== END 2021-02-20 11:30 | disposition home or self-care (01) ==
LOC: SDC 07:30
PROVIDERS: ATTEND Surgery
DX: Z30.2 Encounter for sterilization (principal)
CPT/HCPCS: 81001; 84703; 87086; J0694; J1100; J1885; J2405; J2704; J3010

== ENCOUNTER 2022-05-26 13:14 | Emergency (ER) | payer OTHER ==
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
--- NOTE | 2022-05-26 14:46 | XRAY ---
Indication: Left leg pain and swelling. Two-dimensional sonogram and color Doppler imaging of the major venous vessels of the left leg performed. Comparison: None No thrombus seen in the examined deep venous vessels of the left leg including greater saphenous vein. Veins demonstrate normal compressibility. Venous waveforms are normal with and without augmentation. Impression: Left leg negative for DVT.
--- NOTE | 2022-05-26 14:48 | XRAY ---
Indication: Left leg pain and swelling. Two-dimensional sonogram and color Doppler imaging of the major arteries vessels of the left leg performed. Comparison: None Visualized common femoral, superficial femoral, popliteal, and dorsal pedal arteries are widely patent. Posterior tibial artery is tiny with tiny monophasic arterial waveforms. Remaining arterial waveforms are multiphasic throughout the left leg. Ankle brachial index not performed as patient could not tolerate exam. Impression: Tiny posterior tibial artery with attenuated monophasic arterial waveform. Remaining left leg arterial sonogram is widely patent.
[2022-05-26 14:57] VITALS: BP 103/81; PULSE 80; O2SAT 98
== END 2022-05-26 15:16 | disposition home or self-care (01) ==
LOC: ED 13:14
DX: M79.605 Pain in left leg (principal); M25.572 Pain in left ankle and joints of left foot; Z79.891 Long term (current) use of opiate analgesic; Z79.899 Other long term (current) drug therapy; Z28.310 Unvaccinated for COVID-19
CPT/HCPCS: 93926; 93971; 99282

== ENCOUNTER 2022-08-14 12:14 | Emergency (ER) | payer OTHER ==
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
[2022-08-14 13:45] LABS: Appearance Turbid (Clear); Bilirubin Negative (Negative); Blood Large (Negative); Epithelial Cells Few /HPF (None Seen); Glucose, Urine Negative (Negative); Hyaline Casts NONE SEEN /LPF (0-2); Ketones Negative (Negative); Leukocyte Esterase Large (Negative); Nitrite Positive (Negative); Protein,Urine Dip 100 (Negative); Specific Gravity 1.015 (1.005-1.030); Urobilinogen 0.2 mg/dL (0.2)
[2022-08-14 13:46] LABS: ADD URINE CULTURE? YES (NO); Bacteria Moderate /HPF (None Seen); WBC 21-50 /HPF (0-5)
[2022-08-14 14:17] VITALS: BP 112/74; PULSE 70
--- NOTE | 2022-08-14 14:39 | XRAY ---
Indication: Right flank pain and hematuria. History kidney stones. Multiple contiguous axial images obtained through the abdomen pelvis without contrast using renal stone protocol. Comparison: August 22, 2015 Lung bases clear. Heart not enlarged. New 1.7 cm right UPJ calculus with moderate hydronephrosis. No perinephric fluid. Additional new right lower renal and left mid renal punctate calculi. Noncontrasted stomach and bowel loops are nonobstructed with normal appendix. Again mild diffuse fecal stasis throughout, more than before. Minimal sigmoid diverticulosis without diverticulitis. Remaining liver, gallbladder, pancreas, spleen, adrenal glands, kidneys, ureters, bladder, uterus, and aorta are unremarkable for noncontrast exam. Osseous structures intact. Impression: 1. New 1.7 cm right UPJ with moderate hydronephrosis. Additional bilateral renal micro-calculi. 2. Worsening mild diffuse fecal stasis. New sigmoid diverticulosis.
[2022-08-14] MEDS ORDERED: Rocephin 1000 MG INJ IM ONE (14:44)
[2022-08-14] MEDS ORDERED: TORAdol 30 mg Injection IM ONE (14:45)
[2022-08-14 14:51] VITALS: O2SAT 97
[2022-08-14] MEDS ORDERED: XYLOCAINE 1% HCL 20 ML MDV ONE (14:58)
[2022-08-14] MEDS ORDERED: TORAdol 30 mg Injection ONE (14:58)
[2022-08-14] MEDS ORDERED: Rocephin 1000 MG INJ ONE (14:58)
== END 2022-08-14 15:24 | disposition home or self-care (01) ==
LOC: ED 12:14
DX: N13.2 Hydronephrosis with renal and ureteral calculous obstruction (principal); N39.0 Urinary tract infection, site not specified; R10.9 Unspecified abdominal pain; R11.2 Nausea with vomiting, unspecified; Z87.442 Personal history of urinary calculi; Z79.891 Long term (current) use of opiate analgesic; Z79.899 Other long term (current) drug therapy; Z28.310 Unvaccinated for COVID-19; Z72.0 Tobacco use
CPT/HCPCS: 74176; 81001; 81025; 87077; 87086; 87186; 96372; 99284; J0696; J1885

== ENCOUNTER 2022-09-10 13:14 | Emergency (ER) | payer OTHER ==
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
[2022-09-10] MEDS ORDERED: Sodium Chloride 0.9% 1000 ML 1,000 ML IV STA (13:33)
[2022-09-10] MEDS ORDERED: Zofran 4 MG/2 ML VIAL IV ONE (13:33)
[2022-09-10] MEDS ORDERED: Hydromorphone 1 mg/ml Injection IV ONE (13:33)
[2022-09-10] MEDS ORDERED: Zofran 4 MG/2 ML VIAL ONE (13:36)
[2022-09-10] MEDS ORDERED: Sodium Chloride 0.9% 1000 ML 1,000 ML ONE (13:37)
[2022-09-10] MEDS ORDERED: Hydromorphone 1 mg/ml Injection ONE (13:37)
[2022-09-10 14:15] LABS: BASOPHIL % 0.4 % (0.0-0.4); Basophil (Absolute #) 0.04 x10^3/uL (0-0.4); Eosinophil % 1.2 % (0.00-5.0); Eosinophil (Absolute #) 0.13 x10^3/uL (0-0.5); Hematocrit 39.4 % (35-47); Hemoglobin 12.6 g/dL (12.0-16.0); IMMATURE GRAN # 0.04 x10^3u/L (0.00-0.03); IMMATURE GRAN % 0.4 % (0.00-0.4); Lymphocytes % 15.2 % (24.0-44.0); Mean Cell Volume 91.8 fL (78-100); Mean Corpuscular Hemoglobin 29.4 pg (26-32); Mean Platelet Volume 9.4 fL (7.5-11.0); Monocyte (Absolute #) 0.59 x10^3/uL (0.0-1.3); Monocytes % 5.3 % (0.0-12.0); Neutrophil % 77.5 % (36.0-66.0); Platelet Count 253 x10^3/uL (150-450); Red Blood Count 4.29 x10^6/uL (4.1-5.4); Red Cell Distribution Width 12.8 % (11.5-14.0); White Blood Count 11.2 x10^3/uL (4.0-10.5)
[2022-09-10 14:29] LABS: ALBUMIN 3.9 g/dL (3.5-5.0); ALKALINE PHOSPHATASE 89 U/L (38-126); AMYLASE 48 U/L (30-110); ANION GAP 12.1 MEQ/L (5-15); BLOOD UREA NITROGEN 18 mg/dL (7-17); CHLORIDE 104 mmol/L (98-107); Calcium 8.6 mg/dL (8.4-10.2); Carbon Dioxide 24 mmol/L (22-30); Creatinine 1 0.76 mg/dL (0.52-1.04); EST GLOMERULAR FILTRATION RATE > 60.0 ML/MIN; Glucose 98 mg/dL (74-106); LIPASE 21 U/L (23-300); Potassium 4.4 mmol/L (3.5-5.1); SGOT/AST 16 U/L (14-36); SGPT/ALT 14 U/L (0-35); SODIUM 136 mmol/L (137-145); Total Protein 6.9 g/dL (6.3-8.2)
--- NOTE | 2022-09-10 14:44 | XRAY ---
Indication: Status post nephrostomy tube removal. Pain and drainage from nephrostomy site. Multiple contiguous images obtained through the abdomen and pelvis without contrast using renal stone protocol. Comparison: August 14, 2022. Lung bases now demonstrates minimal dependent atelectasis. Heart not enlarged. Right kidney demonstrates increasing renal edema with grossly stable moderate hydronephrosis. No perinephric fluid. Previous 1.7 cm right UPJ calculus absent. Stable right lower renal and left mid renal punctate calculi. Right ureter is now distended throughout up to 1.1 cm diameter without ureteral calculus. Posterior lateral right back demonstrates new nephrostomy track without focal fluid/air collection. Noncontrasted stomach and bowel loops appear nonobstructed again with normal appendix. There remains mild diffuse fecal debris throughout. New tiny cul-de-sac fluid presumed physiologic from rupture/leaking cyst. New 3 cm left ovary cyst. Remaining liver, gallbladder, pancreas, spleen, adrenal glands, kidneys, ureters, bladder, uterus, and aorta are unremarkable for noncontrast exam. Impression: 1. Status post right percutaneous nephrostomy removal without focal fluid/air collection. 2. Previous right UPJ calculus absent consistent with extraction. There remains right renal edema with hydronephrosis and new right hydroureter presumed from recent obstructive uropathy. Stable bilateral renal micro-calculi. 3. New 3 cm left ovary cyst with new physiologic cul-de-sac fluid. 4. Again incidental mild diffuse fecal stasis.
[2022-09-10] MEDS ORDERED: TORAdol 30 mg Injection IV ONE (15:11)
[2022-09-10] MEDS ORDERED: TORAdol 30 mg Injection ONE (15:18)
[2022-09-10 16:10] VITALS: BP 159/88; PULSE 48; O2SAT 100
[2022-09-10 16:36] LABS: Appearance Cloudy (Clear); Bilirubin Small (Negative); Blood Negative (Negative); Glucose, Urine Negative (Negative); Hyaline Casts NONE SEEN /LPF (0-2); Ketones Negative (Negative); Leukocyte Esterase Small (Negative); Nitrite Positive (Negative); Protein,Urine Dip 30 (Negative); RBC 0-2 /HPF (0-5); Specific Gravity 1.015 (1.005-1.030); WBC 0-2 /HPF (0-5)
[2022-09-10 16:43] LABS: ADD URINE CULTURE? YES (NO); Bacteria Few /HPF (None Seen); Epithelial Cells Rare /HPF (None Seen)
== END 2022-09-10 17:05 | disposition home or self-care (01) ==
LOC: ED 13:14
DX: G89.18 Other acute postprocedural pain (principal); R10.84 Generalized abdominal pain; N39.0 Urinary tract infection, site not specified; Z79.891 Long term (current) use of opiate analgesic; Z79.899 Other long term (current) drug therapy; Z28.310 Unvaccinated for COVID-19; Z72.0 Tobacco use
CPT/HCPCS: 36000; 36415; 74176; 80053; 81001; 82150; 83690; 85025; 87086; 96360; 96374; 96375; 99284; J1170; J1885; J2405

== ENCOUNTER 2022-10-23 00:25 | Emergency (ER) | payer OTHER ==
[2022-10-23] MEDS ORDERED: TORAdol 30 mg Injection ONE (00:47)
--- NOTE | 2022-10-23 08:41 | XRAY ---
Indication: Pain following fall. Comparison: None 3 view left knee demonstrates old distal femur shaft fracture, incompletely visualized femur/tibial shaft orthopedic hardware, and mild medial joint space narrowing with heterotopic ossification. No other bony, articular, or soft tissue abnormalities.
--- NOTE | 2022-10-23 08:43 | XRAY ---
Indication: Pain following fall. Comparison: August 14, 2021 3 view left ankle again demonstrates old distal tibia/fibula fractures with incompletely visualized orthopedic hardware and numerous lower leg surgical clips. No new/acute bony, articular, or soft tissue abnormalities.
--- NOTE | 2022-10-23 08:45 | XRAY ---
Indication: Pain following fall. Comparison: None 3 nonweightbearing views left foot demonstrates old distal tibia/fibula fractures with incompletely visualized orthopedic hardware reported separately. No other bony, articular, or soft tissue abnormalities.
== END 2022-10-23 01:54 | disposition home or self-care (01) ==
LOC: ED 00:25
DX: M79.605 Pain in left leg (principal); W01.0XXA Fall on same level from slipping, tripping and stumbling without subsequent striking against object, initial encounter; Y93.01 Activity, walking, marching and hiking; Y92.512 Supermarket, store or market as the place of occurrence of the external cause; M79.672 Pain in left foot; Z72.0 Tobacco use; Z79.899 Other long term (current) drug therapy
CPT/HCPCS: 73562; 73610; 73630; 96372; 99282; J1885; L4386

== ENCOUNTER 2024-01-02 16:44 | Emergency (ER) | payer OTHER ==
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
[2024-01-02 17:00] VITALS: TEMP 98.1
--- NOTE | 2024-01-02 18:19 | XRAY ---
CLINICAL HISTORY: injury COMPARISON: None. TECHNIQUE: X-ray left ankle AP, lateral and oblique views. FINDINGS: Old nonunited fracture of the mid tibia with intramedullary nail and screws. It is associated with hypertrophic callus formation soft tissue thinning and deformity in the lower leg. Old healed fracture of the distal third of the fibula. [place]ent areas in the distal fibula related to osteoporotic changes. No recent fracture. Multiple radiopaque sutures are seen related to the anterior and the lateral aspects of the tibia. Ankle joint space is preserved. IMPRESSION: 1. Old fractures of the tibia and fibula are noted as described. 2. No acute fracture. Disclaimer: A subtle bone abnormality or fracture may not be readily apparent on x-rays, thus clinical correlation and further imaging including follow-up CT, MRI, or follow-up x-rays are advised as needed. Electronically Signed by: Natalio Culp MD. (01/02/2024 18:15:41 EDT)
--- NOTE | 2024-01-02 18:45 | XRAY ---
CLINICAL HISTORY: injury COMPARISON: None. TECHNIQUE: X-ray of the left foot AP, Oblique, and lateral views. FINDINGS: Normal bone mineral density was noted. A radiological examination of the foot demonstrates no lytic or sclerotic bone lesion. No definite fracture is visible in these views. The cortical margins of the osseous structures are within normal limits. Normal metatarsophalangeal and interphalangeal joint spaces. Articular margins are intact. No focal abnormality was seen in the left great toe. Soft tissues appear unremarkable. Intramedullary nailing with screws fixation seen in the visualized distal tibia IMPRESSION: No acute osseous abnormality was seen in the left foot. DISCLAIMER:A subtle bone abnormality or fracture may not be readily apparent on x-rays, thus clinical correlation and further imaging including follow-up CT, MRI, or follow-up x-rays are advised as needed. Electronically Signed by: Natalio Culp MD. (01/02/2024 18:41:27 EDT)
[2024-01-02 19:05] VITALS: BP 118/92; PULSE 83; RESP 18; O2SAT 98
== END 2024-01-02 19:12 | disposition home or self-care (01) ==
LOC: ED 16:44
DX: S93.402A Sprain of unspecified ligament of left ankle, initial encounter (principal); V06.00XA Pedestrian on foot injured in collision with other nonmotor vehicle in nontraffic accident, initial encounter; Y92.834 Zoological garden (Zoo) as the place of occurrence of the external cause; Z79.891 Long term (current) use of opiate analgesic; Z72.0 Tobacco use
CPT/HCPCS: 73610; 73630; 99282